=== PATIENT | female | born 1965 | race Caucasian/White ===

== ENCOUNTER → 2018-10-18 | Outpatient (CLI) | payer OTHER ==
[~2018-10-18] MED LIST: ATORVASTATIN CA40 MG PO; CLINDAMYCIN HC150 MG PO; GABAPENTIN300 MG PO; GLIMEPIRIDE2 MG PO; JARDIANCE PO; KEPPRA500 MG PO; LISINOPRIL-HCT1 EAC2 PO; METFORMIN HCL500 MG PO; MUPIROCIN22 GM TOP; [UNRECOGNIZED DRUG - OTHER] PO
--- OUTSIDE RECORDS SUMMARY | 2018-10-20 08:37 | XMS REPORT ---
Author Author [facility] Address Unknown Phone Unavailable Care Team Providers Care Humanities Division Chair Name Role Phone STEPHON STEPHENSON Unavailable Unavailable Problems This patient has no known problems. Allergies, Adverse Reactions, Alerts This patient has no known allergies or adverse reactions. Medications This patient has no known medications. Results Test Description Test Time Test Comments Text Results Atomic Results Result Comments CT, BRAIN, WITHOUT CONTRAST 2018-09-03 12:36:00 Reason for exam:->Seizure FINAL REPORT CT Head without contrast CLINICAL HISTORY: Seizure TECHNIQUE: Contiguous axial CT images through the head without contrast. This exam was performed according to the departmental dose optimization program which includes automated exposure control, adjustment of the mA and/or kV according to the patient size, and/or use of an iterative reconstruction technique. COMPARISON: 04/26/2015 FINDINGS: There is no CT evidence of acute infarct or intracranial hemorrhage. A right-sided craniotomy is again seen with underlying perirolandic encephalomalacia. There is mild periventricular and subcortical white matter hypodensity which is nonspecific but compatible with chronic microvascular ischemic change. There are mild atherosclerotic calcifications of the intracranial circulation. There is mild generalized parenchymal volume loss without hydrocephalus, midline shift, or apparent mass effect. The visualized paranasal sinuses are well-aerated. IMPRESSION: No CT evidence of acute infarct, hemorrhage, or hydrocephalus. Other chronic-appearing findings as described above are grossly unchanged. Signed: Amanda Al MDReport Verified Date/Time: 09/03/2018 12:36:26 Reading Location: [facility] C013V Neuro Reading Room PHORUS 2018-09-03 12:31:00 PHOSPHORUS (BEAKER) (test ncwv=244) 2.4 mg/dL 2.3-4.7 [id number] 12:31:00* Test Item Value Reference Range Comments MAGNESIUM (BEAKER) (test ncth=468) 1.6 mg/dL 1.6-2.6 BASIC METABOLIC [id number] 12:31:00* Test Item Value Reference Range Comments SODIUM (BEAKER) (test bajj=652) 136 meq/L 136-145 POTASSIUM (BEAKER) (test mlda=755) 3.4 meq/L 3.5-5.1 CHLORIDE (BEAKER) (test dwlh=968) 101 meq/L 98-107 CO2 (BEAKER) (test fhzk=411) 26 meq/L 22-29 BLOOD UREA NITROGEN (BEAKER) (test wpdx=099) 13 mg/dL 7-21 CREATININE (BEAKER) (test yuxc=839) 0.79 mg/dL 0.57-1.25 GLUCOSE RANDOM (BEAKER) (test sgpr=055) 289 mg/dL 70-105 CALCIUM (BEAKER) (test qsdj=537) 8.8 mg/dL 8.4-10.2 EGFR (BEAKER) (test bryr=9027) 92 mL/min/1.73 sq m ESTIMATED GFR IS NOT ACCURATE CREATININE CLEARANCE IN PREDICTING GLOMERULAR FILTRATION RATE. ESTIMATED GFR IS NOT APPLICABLE FOR DIALYSIS PATIENTS. CBC W/PLT COUNT & AUTO [id number] 12:21:00* Test Item Value Reference Range Comments WHITE BLOOD CELL COUNT (BEAKER) (test sozb=858) 11.2 K/ L 3.5-10.5 RED BLOOD CELL COUNT (BEAKER) (test mrdb=943) 4.54 M/ L 3.93-5.22 HEMOGLOBIN (BEAKER) (test qgyp=240) 11.6 GM/DL 11.2-15.7 HEMATOCRIT (BEAKER) (test yuhc=371) 35.9 % 34.1-44.9 MEAN CORPUSCULAR VOLUME (BEAKER) (test dnwf=179) 79.1 fL 79.4-94.8 MEAN CORPUSCULAR HEMOGLOBIN (BEAKER) (test scmx=360) 25.6 pg 25.6-32.2 MEAN CORPUSCULAR HEMOGLOBIN CONC (BEAKER) (test xwvu=076) 32.3 GM/DL 32.2-35.5 RED CELL DISTRIBUTION WIDTH (BEAKER) (test vnkc=582) 13.3 % 11.7-14.4 PLATELET COUNT (BEAKER) (test oeec=357) 225 K/CU MM 150-450 MEAN PLATELET VOLUME (BEAKER) (test bdks=838) 11.3 fL 9.4-12.3 NUCLEATED RED BLOOD CELLS (BEAKER) (test cvqm=832) 0 /100 WBC 0-0 NEUTROPHILS RELATIVE PERCENT (BEAKER) (test mvoy=431) 75 % LYMPHOCYTES RELATIVE PERCENT (BEAKER) (test xlpk=040) 17 % MONOCYTES RELATIVE PERCENT (BEAKER) (test vbdq=685) 7 % EOSINOPHILS RELATIVE PERCENT (BEAKER) (test cojb=642) 1 % BASOPHILS RELATIVE PERCENT (BEAKER) (test bltt=994) 0 % NEUTROPHILS ABSOLUTE COUNT (BEAKER) (test xufs=231) 8.38 K/ L 1.56-6.13 LYMPHOCYTES ABSOLUTE COUNT (BEAKER) (test aunb=162) 1.93 K/ L 1.18-3.74 MONOCYTES ABSOLUTE COUNT (BEAKER) (test iuiw=890) 0.74 K/ L 0.24-0.36 EOSINOPHILS ABSOLUTE COUNT (BEAKER) (test qbhh=172) 0.11 K/ L 0.04-0.36 BASOPHILS ABSOLUTE COUNT (BEAKER) (test mfgc=183) 0.03 K/ L 0.01-0.08 IMMATURE GRANULOCYTES-RELATIVE PERCENT (BEAKER) (test rxgf=3218) 0 % 0-1
--- OUTSIDE RECORDS SUMMARY | 2018-10-20 08:37 | XMS REPORT | Clinical Summary ---
Author Author [facility] Address Unknown Phone Unavailable Care Team Providers Care Senior Case Manager Name Role Phone Sharpless PCP Allergies No Known Allergies Medications End Date Status Medication Sig Dispensed Refills Start Date Active lisinopril Take 10 mg by 0 (PRINIVIL,ZESTRIL) 10 MG mouth daily. tablet Active levETIRAcetam (KEPPRA) Take 500 mg 0 500 MG tablet by mouth 2 (two) times daily. Active glipiZIDE (GLUCOTROL) 5 Take by mouth 0 MG tablet daily Unknown dose . Active Problems Not on file Encounters Care Team Description Date Type Specialty Malik Finch MD Seizures (HCC) (Primary Dx); Hyperglycemia; DM (diabetes mellitus), secondary uncontrolled (HCC) 09/03/2018 Emergency Emergency Medicine 09/03/2018 Travel after 10/19/2017 Family History Medical History Relation Name Comments Diabetes Father Hypertension Father Relation Name Status Comments Father Social History Date Tobacco Use Types Packs/Day Years Used Never Smoker Smokeless Tobacco: Never Used Alcohol Use Drinks/Week oz/Week Comments Yes occasinally Sex Assigned at Date Recorded Not on file Industry Job Start Date Occupation Not on file Not on file Not on file Travel End Travel History Travel Start No recent travel history available. Last Filed Vital Signs Time Taken Vital Sign Reading 09/03/2018 2:30 PM CDT Blood Pressure 168/105 09/03/2018 2:30 PM CDT Pulse 91 09/03/2018 1:00 PM CDT Temperature 36.6 C (97.9 F) 09/03/2018 2:30 PM CDT Respiratory Rate 15 09/03/2018 2:30 PM CDT Oxygen Saturation 100% - Inhaled Oxygen - Concentration 09/03/2018 11:14 AM CDT Weight 69.4 kg (153 lb) 09/03/2018 11:14 AM CDT Height 157.5 cm (5' 2") 09/03/2018 11:14 AM CDT Body Mass Index 27.98 Plan of Treatment Not on file Procedures Comments Procedure Name Priority Date/Time Associated Diagnosis CT BRAIN WITHOUT IV STAT 09/03/2018 CONTRAST 12:35 PM CDT CBC W/PLT COUNT & AUTO STAT 09/03/2018 DIFFERENTIAL 11:51 AM CDT PHOSPHORUS STAT 09/03/2018 11:51 AM CDT MAGNESIUM STAT 09/03/2018 11:51 AM CDT BASIC METABOLIC PANEL (7) STAT 09/03/2018 11:51 AM CDT CBC W/PLT COUNT & AUTO STAT 09/03/2018 DIFFERENTIAL 11:51 AM CDT after 10/19/2017 Results * CT brain without IV contrast (09/03/2018 12:35 PM CDT) Specimen Narrative Performed At FINAL REPORT [facility] CT Head without contrast CLINICAL HISTORY: Seizure [...] described above are grossly unchanged. Signed: Amanda Jones MD Report Verified Date/Time:09/03/2018 12:36:26 Reading Location: [facility] C013V Neuro Reading Room Procedure Note Interface, External Ris In - 09/03/2018 12:38 PM CDT FINAL REPORT CT Head without contrast CLINICAL [...] described above are grossly unchanged. Signed: Amanda Jones MD Report Verified Date/Time: 09/03/2018 12:36:26 Reading Location: [facility] C0[facility] Neuro Reading Room Performing Organization Address City/State/Zipcode Phone Number GE RIS * CBC with platelet count + automated diff (09/03/2018 11:51 AM CDT) WBC 11.2 (H) 3.5 - 10.5 K/L [facility] RBC 4.54 3.93 - 5.22 M/L [facility] Hemoglobin 11.6 11.2 - 15.7 GM/DL [facility] Hematocrit 35.9 34.1 - 44.9 % [facility] MCV 79.1 (L) 79.4 - 94.[address] [facility] MCH 25.6 25.6 - 32.[address] [facility] MCHC 32.3 32.2 - 35.5 GM/DL [facility] RDW 13.3 11.7 - 14.4 % [facility] Platelets 225 150 - 450 K/CU MM [facility] MPV 11.3 9.4 - 12.[address] [facility] nRBC 0 0 - 0 /100 WBC [facility] % Neutros 75 % [facility] % Lymphs 17 % [facility] % Monos 7 % [facility] % Eos 1 % [facility] % Baso 0 % [facility] # Neutros 8.38 (H) 1.56 - 6.13 K/L [facility] # Lymphs 1.93 1.18 - 3.74 K/L [facility] # Monos 0.74 (H) 0.24 - 0.36 K/L [facility] # Eos 0.11 0.04 - 0.36 K/L [facility] # Baso 0.03 0.01 - 0.08 K/L [facility] Immature 0 0 - 1 % [facility] Granulocytes-Relative [facility] Specimen Blood Performing Organization Address City/[facility]/Zipcode Phone Number [address] [address] [facility] * Phosphorus (09/03/2018 11:51 AM CDT) Phosphorus 2.4 2.3 - 4.7 mg/dL [facility] Specimen Blood Performing Organization Address City/[facility]/Zipcode Phone Number [address] [address] [facility] * Magnesium (09/03/2018 11:51 AM CDT) Magnesium 1.6 1.6 - 2.6 mg/dL [facility] Specimen Blood Performing Organization Address City/State/Zipcode Phone Number [facility] [address] [place] [address] [facility] * Basic Metabolic Panel (09/03/2018 11:51 AM CDT) Sodium 136 136 - 145 meq/L [facility] Potassium 3.4 (L) 3.5 - 5.1 meq/L [facility] Chloride 101 98 - 107 meq/L [facility] CO2 26 22 - 29 meq/L [facility] BUN 13 7 - 21 mg/dL [facility] Creatinine 0.79 0.57 - 1.25 mg/dL [facility] Glucose 289 (H) 70 - 105 mg/dL [facility] Calcium 8.8 8.4 - 10.2 mg/dL [facility] EGFR 92Comment: ESTIMATED GFR IS mL/min/1.73 sq m [facility] NOT ACCURATE CREATININE [facility] CLEARANCE IN PREDICTING GLOMERULAR FILTRATION RATE. ESTIMATED GFR IS NOT APPLICABLE FOR DIALYSIS PATIENTS. Specimen Blood Performing Organization Address City/State/Zipcode Phone Number [facility] [address] [place] [address] [facility] after 10/19/2017 Insurance Payer Benefit Subscriber ID Type Phone Address Plan / Group [employer] - MGD CARE [employer] xxxxxxxxxxx HMO/POS HMO/POS/OP EN ACCESS
== END | disposition home or self-care (01) ==
LOC: RAD 05:00 → OR 10-20 08:34 → EDSTATUS 10-20 11:30
PROVIDERS: ATTEND Internal Medicine Gastroenterology
DX: Z01.810 Encounter for preprocedural cardiovascular examination (principal)
CPT/HCPCS: 93005

== ENCOUNTER → 2018-10-27 | Day surgery (SDC) | payer OTHER ==
[~2018-10-27] MED LIST changes: +FENTANYL CITRATE/PF 100MCG/2 ML INJ ONE; +HYOSCYAMINE 0.125 MG TAB ONE; +KETAMINE HCL INJ 50 MG/ML 10 ML VIAL ONE; +MIDAZOLAM HCL 2 MG/2 ML VIAL ONE; +PROPOFOL IV EMULSION 10 MG/ML 50 ML VIAL ONE
--- OUTSIDE RECORDS SUMMARY | 2018-10-27 08:49 | XMS REPORT | Clinical Summary ---
Author Author [facility] Address Unknown Phone Unavailable Care Team Providers Care Offset Press Operator Apprentice Name Role Phone Sharpless PCP Allergies No [...] 09/03/2018 Emergency Emergency Medicine 09/03/2018 Travel after 10/26/2017 Family History Medical History Relation Name Comments [...] STAT 09/03/2018 DIFFERENTIAL 11:51 AM CDT after 10/26/2017 Results * CT brain without IV contrast (09/03/2018 12:35 PM CDT) Specimen Narrative Performed At FINAL REPORT [facility] CT Head without contrast CLINICAL HISTORY: Seizure [...] MD Report Verified Date/Time:09/03/2018 12:36:26 Reading Location: [facility] C013V Neuro Reading Room Procedure Note Interface, [...] Report Verified Date/Time: 09/03/2018 12:36:26 Reading Location: [facility] C[facility] Neuro Reading Room Performing Organization Address City/State/Zipcode Phone Number GE RIS * CBC with platelet count + automated diff (09/03/2018 11:51 AM CDT) WBC 11.2 (H) 3.5 - 10.5 K/L [facility] RBC 4.54 3.93 - 5.22 M/L [facility] Hemoglobin 11.6 11.2 - 15.7 GM/DL [facility] Hematocrit 35.9 34.1 - 44.9 % [facility] MCV 79.1 (L) 79.4 - 94.8 fL [facility] MCH 25.6 25.6 - 32.2 pg [facility] MCHC 32.3 32.2 - 35.5 GM/DL [facility] RDW 13.3 11.7 - 14.4 % [facility] Platelets 225 150 - 450 K/CU MM [facility] MPV 11.3 9.4 - 12.3 fL [facility] nRBC 0 0 - 0 /100 WBC [facility] % Neutros 75 % [facility] % Lymphs 17 % [facility] % Monos 7 % [facility] % Eos 1 % [facility] % Baso 0 % [facility] # Neutros 8.38 (H) 1.56 - 6.13 K/L [facility] # Lymphs 1.93 1.18 - 3.74 K/L [facility] # Monos 0.74 (H) 0.24 - 0.36 K/L [facility] # Eos 0.11 0.04 - 0.36 K/L [facility] # Baso 0.03 0.01 - 0.08 K/L [facility] Immature 0 0 - 1 % [facility] Granulocytes-Relative [facility] Specimen Blood Performing Organization Address City/[facility]/Zipcode Phone Number [address] [address] [facility] * Phosphorus (09/03/2018 11:51 AM CDT) Phosphorus 2.4 2.3 - 4.7 mg/dL [facility] Specimen Blood Performing Organization Address City/[facility]/Zipcode Phone Number [address] [address] [facility] * Magnesium (09/03/2018 11:51 AM CDT) Magnesium 1.6 1.6 - 2.6 mg/dL [facility] Specimen Blood Performing Organization Address City/State/Zipcode Phone Number [facility] [address] [place] [address] [facility] * Basic Metabolic Panel (09/03/2018 11:51 AM CDT) Sodium 136 136 - 145 meq/L [facility] Potassium 3.4 (L) 3.5 - 5.1 meq/L [facility] Chloride 101 98 - 107 meq/L [facility] CO2 26 22 - 29 meq/L [facility] BUN 13 7 - 21 mg/dL [facility] Creatinine 0.79 0.57 - 1.25 mg/dL [facility] Glucose 289 (H) 70 - 105 mg/dL [facility] Calcium 8.8 8.4 - 10.2 mg/dL [facility] EGFR 92Comment: ESTIMATED GFR IS mL/min/1.73 sq m [facility] NOT ACCURATE CREATININE [facility] CLEARANCE IN PREDICTING GLOMERULAR FILTRATION RATE. ESTIMATED GFR IS NOT APPLICABLE FOR DIALYSIS PATIENTS. Specimen Blood Performing Organization Address City/State/Zipcode Phone Number [facility] [address] [place] [address] [facility] after 10/26/2017 Insurance Payer Benefit Subscriber ID Type Phone Address Plan / Group [employer] - MGD CARE CIG[employer] xxxxxxxxxxx HMO/POS HMO/POS/OP EN ACCESS
[2018-10-27 13:30] VITALS: BP 157/97
--- NOTE | 2018-10-27 20:21 | Operative Report ---
DATE OF PROCEDURE: 10/27/2018 SURGEON: Earl Vasquez MD PROCEDURE: Colonoscopy with polypectomy. INDICATIONS FOR COLONOSCOPY: Colorectal cancer screening. MEDICATIONS: The patient was done under MAC, please see anesthesiologist's note. PROCEDURE IN DETAIL: With the patient in left lateral decubitus position, a flexible fiberoptic Olympus colonoscope was inserted into the rectum with ease and advanced all the way to the cecum. Prep overall was suboptimal, but visualization was fair after extensive lavage. Whatever was visualized the mucosa overlying the cecum, ascending colon, transverse colon, and descending colon appeared to be within normal limits. One polyp approximately 1 cm in size was removed per snare electrocautery and site was hemoclipped x2 in the sigmoid colon. Two additional polyps were hot biopsied from the sigmoid colon. The rest of the sigmoid and rectum appeared to be within normal limits. The scope was then retroflexed into the distal rectum and small internal hemorrhoids were noted, none of which was actively bleeding. The scope was then straightened out, it was subsequently withdrawn, and the patient tolerated the procedure well. IMPRESSION: 1. Prep overall suboptimal, but visualization was fair after extensive lavage. 2. Sigmoid colon polyps x3, one approximately 1 cm in size, removed per snare electrocautery and polypectomy site hemoclipped x2, two additional polyps were removed per hot biopsy forceps. 3. Internal hemorrhoids, none actively bleeding. PLAN: Follow up histology. Initiate high-fiber, low-fat diet. Initiate high-fiber supplement. The patient might benefit from a followup colonoscopy in 1 to 2 years. Earl Vasquez MD [facility]/SHAYE /[id number] cc: Azalea Bragg MD
== END | disposition home or self-care (01) ==
LOC: OR 08:46
PROVIDERS: ATTEND Internal Medicine Gastroenterology
DX: Z12.11 Encounter for screening for malignant neoplasm of colon (principal); D12.5 Benign neoplasm of sigmoid colon; K64.8 Other hemorrhoids; K80.31 Calculus of bile duct with cholangitis, unspecified, with obstruction; I10 Essential (primary) hypertension; R74.8 Abnormal levels of other serum enzymes; E11.9 Type 2 diabetes mellitus without complications; G62.9 Polyneuropathy, unspecified; G40.909 Epilepsy, unspecified, not intractable, without status epilepticus; Z78.9 Other specified health status; Z79.84 Long term (current) use of oral hypoglycemic drugs
CPT/HCPCS: 36415; 45384; 45385; 81025; 82948; J2250; J2704; J3010; 45378